=== PATIENT | male | born 1955 | race Caucasian/White ===

== ENCOUNTER 2017-03-01 17:13 | Inpatient (IN) | payer OTHER ==
[~2017-03-01] VITALS: Ht 157.5 cm; Wt 69.9 kg
[2017-03-01 20:40] VITALS: Ht 157.5 cm; Wt 69.9 kg
[2017-03-01 20:48] VITALS: BP 119/80; PULSE 70; RESP 18
[2017-03-01] MEDS ORDERED: ONDANSETRON 4 MG INJ IV PRN (22:00)
[2017-03-01] MEDS ORDERED: DOCUSATE SODIUM 100 MG CAP PO PRN (22:00)
[2017-03-01] MEDS ORDERED: NACL 0.9% 3 ML SYG IV SCH (22:00)
[2017-03-01] MEDS ORDERED: ACETAMINOPHEN 325 MG TAB PO PRN (22:00)
[2017-03-01 23:00] LABS: CREATINE KINASE 38 IU/L (23-200)
[2017-03-01 23:13] LABS: CK-MB 0.92 ng/ml (0.0-2.4); TROPONIN-I < 0.012 ng/ml (0.00-0.12)
[2017-03-02] VITALS (12 sets, daily range): BP systolic 106–128; BP diastolic 69–83; PULSE 58–68; RESP 18–20
[2017-03-02 04:28] LABS: CREATINE KINASE 37 IU/L (23-200)
[2017-03-02 04:44] LABS: CK-MB 0.94 ng/ml (0.0-2.4); TROPONIN-I < 0.012 ng/ml (0.00-0.12)
[2017-03-02] MEDS: METOPROLOL 25 MG TAB PO SCH (08:32)
[2017-03-02] MEDS: ASPIRIN 81 MG TAB PO SCH (08:32)
[2017-03-02] MEDS: FAMOTIDINE 20 MG TAB PO SCH ×2 (08:32→21:13)
--- NOTE | 2017-03-02 13:51 | RADRPT ---
Echocardiogram Report Patient Name: STACEY CARRENO Gender: Male Date: 1955 Study Date: 02-Mar-2017 Pocket Closer: Felix Cassidy [facility] Location: 5556 Ref. Physician: PAOLA HECK Quality: Adequate Procedures: Transthoracic echocardiogram with complete 2D, M-Mode, and doppler examination. Indications: Angina. 2D/M Mode Doppler Measurement Value Normal Ranges Measurement Value Normal Ranges LVIDd 2D 5.5 3.5 - 5.6 cm AV Peak Jose 0.8 m/sec LVIDs 2D 4.4 2.1 - 4.1 cm AV Peak PG 3.0 mmHg FS 2D 20.5 % LVOT Peak Jose 0.5 m/sec LVPWd 2D 1.2 0.6 - 1.1 cm LVOT Peak PG 1.0 mmHg IVSd 2D 1.1 0.6 - 1.1 cm MV E Peak Jose 0.7 m/sec IVS/LVPW 2D 0.9 MV Decel Time 225 msec AoR Diam 2D 2.8 2.0 - 3.7 cm MR Peak PG 56.0 mmHg LA/Ao 2D 1 0 - 1 MR Peak Jose 3.7 m/sec EDV 2D 167.0 cm3 TR Peak Jose 2.6 m/sec ESV 2D 84.0 cm3 TR Peak PG 27.0 mmHg LA Dimen 2D 3.9 2.3 - 4.0 cm RVSP 35.0 mmHg Findings Left Ventricle: Normal left ventricular cavity size. Normal left ventricular wall thickness. Severe global left ventricular systolic dysfunction. Ejection fraction is visually estimated at 25 %. Abnormal Diastolic Function. Right Ventricle: Normal right ventricular size. Normal right ventricular systolic function. Left Atrium: The left atrium is normal in size. Right Atrium: The right atrium is normal in size. Mitral Valve: Mild mitral leaflet calcification. Mild mitral annular calcification. Mild mitral valve regurgitation. Aortic Valve: Aortic sclerosis without stenosis. Trace aortic valve regurgitation. Tricuspid Valve: Normal appearance of the tricuspid valve. Estimated peak PA systolic pressure 35 mmHg. There is mild tricuspid regurgitation. Pulmonic Valve: Pulmonic valve not well visualized. There is mild to moderate pulmonic regurgitation. Pericardium: Normal pericardium with no significant pericardial effusion. Aorta: Normal aortic root. IVC: Normal size and poor respiratory collapse consistent with elevated right atrial pressure. Conclusions 1.Normal left ventricular cavity size. Normal left ventricular wall thickness. Severe global left ventricular systolic dysfunction. Ejection fraction is visually estimated at 25 %. Abnormal Diastolic Function. 2.Normal right ventricular size. Normal right ventricular systolic function. 3.Mild mitral leaflet calcification. Mild mitral annular calcification. Mild mitral valve regurgitation. 4.Aortic sclerosis without stenosis. Trace aortic valve regurgitation. 5.Normal appearance of the tricuspid valve. Estimated peak PA systolic pressure 35 mmHg. There is mild tricuspid regurgitation. 6.Normal pericardium with no significant pericardial effusion. Electronically Signed By: Santhosh Mejia 02-Mar-2017 13:50:47 -0700 Patient Name: STACEY CARRENO Study Date: 02-Mar-2017 [id number]
--- NOTE | 2017-03-02 14:55 | HP ---
Date/Time of Note Date/Time of Note DATE: 03/02/17 TIME: 14:46 Assessment/Plan VTE Prophylaxis VTE Prophylaxis Intervention: ambulation, LMWH Lines/Catheters IV Catheter Type (from Nrs): Saline Lock Assessment/Plan Chief Complaint/Hosp Course 1. CHest pain 2. Hypertension, controlled 3. Bradycardia 4. CAD 5. CHF 6. Dyslipidemia 7.Overweight 8. Hx of MO and cardiac surgery with sternotomy Problems: Assessment/Plan 1. Telemetry monitoring 2. DVT prophylaxis start lovenox 3. Dr Alexandra for cardio consult 4. GI prophylaxis HPI/ROS Admit Date/Time Admit Date/Time Mar 01, 2017 at 20:40 Hx of Present Illness In the first days of Febeme, pt felt weak, started to have SOB, started to have cough at the night time with no or white sputum. He reported palpitations last week as well. 03/01/17 Pt went to [facility] with SOB, chest pain and swollen legs. Positive for Cardiac surgery, coronary artery disease, and dyslipidemia, ROS Eyes: no complaints ENT: no complaints Respiratory: cough, no complaints, other, pain, pleuritic pain, shortness of breath, sputum (white), wheezing Cardiovascular: chest pain, edema, lightheadedness, orthopenea, palpitations, paroxysmal nocturnal dyspnea, No no complaints, No other Gastrointestinal: blood, constipation, pain, No decreased appetite, No diarrhea, No flatus, No nausea, No no complaints, No other, No passing stool, No vomiting Genitourinary: discharge, dysuria, no complaints, No bleeding, No flank pain, No hematuria, No other Musculoskeletal: back pain, bone/joint pain, neck pain, no complaints, other, restricted range of motion, swelling (loer extremities decreased yesterday in the end of the day) Skin: erythema, no complaints, No bruising, No laceration, No other, No pruritis, No rash, No skin lesions Neurologic: no complaints Endocrine: no complaints Lymphatic: no complaints Psychological: anxiety, no complaints, suicidal, No confusion, No depression, No nl mood/affect, No other PMH/Family/Social Past Medical History [place] speaking Medical History: congestive heart failure, coronary artery disease, high cholesterol, hypertension Past Surgical History Past Surgical Hx: angioplasty, other (heart surgery with sternotomy 2015) Family History Significant Family History: no pertinent family hx Social History Alcohol Use: none Smoking Status: Never smoker Drug Use: none Exam/Review of Systems Vital Signs Vitals Vital Signs Date Time Temp Pulse Resp B/P Pulse Ox O2 Delivery O2 Flow Rate FiO2 03/02/17 12:16 63 03/02/17 12:11 98.0 20 106/76 98 Intake and Output 03/01/17 03/01/17 03/02/17 15:00 23:00 07:00 Intake Total 500 ml Balance 500 ml Exam Constitutional: alert, oriented Head: normocephalic ENMT: nl external ears & nose, nl lips & teeth Neck: supple Respiratory: clear to auscultation Cardiovascular: other (bradycardia), regular rate and rhythm Gastrointestinal: soft Extremities: other (left hand with partially lost phalanxes) 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 Medications Medications Current Medications Ondansetron HCl (Zofran Inj) 4 mg Q6H PRN IV NAUSEA AND/OR VOMITING; Start 03/01 at 22:00 Aspirin (Aspirin) 81 mg DAILY PO Last administered on 03/02/17 08:32; Admin Dose 81 MG; Start 03/02/17 at 09:00 Acetaminophen (Tylenol Tab) 650 mg Q6H PRN PO PAIN LEVEL 1-3 OR FEVER Last administered on 03/02/17 11:59; Admin Dose 650 MG; Start 03/01/17 at 22:00 Docusate Sodium (Colace) 100 mg Q12H PRN PO CONSTIPATION; Start 03/01/17 at 22: 00 Famotidine (Pepcid) 20 mg Q12 PO Last administered on 03/02/17 08:32; Admin Dose 20 MG; Start 03/02/17 at 09:00 Metoprolol Tartrate (Lopressor) 12.5 mg DAILY PO Last administered on 03/02/17 08:32; Admin Dose 12.5 MG; Start 03/02/17 at 09:00 DEVANG FENG Mar 02, 2017 14:55
[2017-03-02] MEDS: ENOXAPARIN 40 MG/0.4 ML SYG SC SCH (15:10)
--- NOTE | 2017-03-02 16:02 | CONS ---
Date/Time of Note Date/Time of Note DATE: 03/02/17 TIME: 15:55 Assessment/Plan Assessment/Plan Additional Assessment/Plan Atypical chest pain Ischemic cardiomyopathy with EF 25% Hypertension Abnormal electrocardiogram CAD, s/p NC , s/p CABG CHF Dyslipidemia Chest pain resolved Started on losartan and Aldactone Continue Metoprolol Restrict fluids 1500cc/ 24 hours Continue ASA Continue GI and DVT Prophylaxis Consultation Date/Type/Reason Admit Date/Time Mar 01, 2017 at 20:40 Eyes: no complaints ENT: no complaints Respiratory: cough, no complaints, other, pain, pleuritic pain, shortness of breath, sputum (white), wheezing Cardiovascular: chest pain, edema, lightheadedness, orthopenea, palpitations, paroxysmal nocturnal dyspnea, No no complaints, No other Gastrointestinal: blood, constipation, pain, No decreased appetite, No diarrhea, No flatus, No nausea, No no complaints, No other, No passing stool, No vomiting Genitourinary: discharge, dysuria, no complaints, No bleeding, No flank pain, No hematuria, No other Musculoskeletal: back pain, bone/joint pain, neck pain, no complaints, other, restricted range of motion, swelling (loer extremities decreased yesterday in the end of the day) Skin: erythema, no complaints, No bruising, No laceration, No other, No pruritis, No rash, No skin lesions Neurologic: no complaints Lymphatic: no complaints Psychological: anxiety, no complaints, suicidal, No confusion, No depression, No nl mood/affect, No other Past Medical History Medical History: congestive heart failure, coronary artery disease, high cholesterol, hypertension Past Surgical History Past Surgical Hx: angioplasty, other (heart surgery with sternotomy 2015) Social History Alcohol Use: none Smoking Status: Never smoker Drug Use: none Exam/Review of Systems Vital Signs Vitals Vital Signs Date Time Temp Pulse Resp B/P Pulse Ox O2 Delivery O2 Flow Rate FiO2 03/02/17 12:16 63 03/02/17 12:11 98.0 20 106/76 98 Intake and Output 03/01/17 03/01/17 03/02/17 15:00 23:00 07:00 Intake Total 500 ml Balance 500 ml Exam Constitutional: alert, oriented Head: atraumatic, normocephalic Neck: non-tender, supple Respiratory: clear to auscultation Cardiovascular: regular rate and rhythm Gastrointestinal: nl liver, spleen, non-tender, soft Extremities: normal pulses Results Results 24 hrs Laboratory Tests Test 03/01/17 22:34 03/02/17 03:18 Creatine Kinase 38 37 Creatine Kinase Index 2.4 2.5 Creatinine Kinase MB (Mass) 0.92 0.94 Troponin I < 0.012 < 0.012 Medications Medications Current Medications Ondansetron HCl (Zofran Inj) 4 mg Q6H PRN IV NAUSEA AND/OR VOMITING; Start 03/01 at 22:00 Aspirin (Aspirin) 81 mg DAILY PO Last administered on 03/02/17 08:32; Admin Dose 81 MG; Start 03/02/17 at 09:00 Acetaminophen (Tylenol Tab) 650 mg Q6H PRN PO PAIN LEVEL 1-3 OR FEVER Last administered on 03/02/17 11:59; Admin Dose 650 MG; Start 03/01/17 at 22:00 Docusate Sodium (Colace) 100 mg Q12H PRN PO CONSTIPATION; Start 03/01/17 at 22: 00 Famotidine (Pepcid) 20 mg Q12 PO Last administered on 03/02/17 08:32; Admin Dose 20 MG; Start 03/02/17 at 09:00 Metoprolol Tartrate (Lopressor) 12.5 mg DAILY PO Last administered on 03/02/17 08:32; Admin Dose 12.5 MG; Start 03/02/17 at 09:00 Enoxaparin Sodium (Lovenox) 40 mg DAILY SC Last administered on 03/02/17 15:10 ; Admin Dose 40 MG; Start 03/02/17 at 15:00 Pantoprazole (Protonix Tab) 40 mg DAILY@06 PO ; Start 03/03/17 at 06:00 NILA HANEY M.D. Mar 02, 2017 16:02
[2017-03-02 16:53] LABS: ALBUMIN 2.9 g/dl (3.3-4.9); ALBUMIN/GLOBULIN RATIO 1.03; CALCIUM 8.8 mg/dl (8.4-10.2); CREATININE 0.97 mg/dl (0.61-1.24); POTASSIUM 4.9 mmol/L (3.5-5.1); TOTAL PROTEIN 5.7 g/dl (6.1-8.1)
[2017-03-02] MEDS: SPIRONOLACTONE 25 MG TAB PO SCH (17:55)
[2017-03-02] MEDS: LOSARTAN 25 MG TAB PO SCH (17:55)
[2017-03-03] VITALS (11 sets, daily range): BP systolic 99–110; BP diastolic 57–71; PULSE 56–66; RESP 17–20
[2017-03-03] MEDS: PANTOPRAZOLE (EC) 40 MG TAB PO SCH (06:26)
[2017-03-03 07:57] LABS: BASOPHIL # 0.1 10^3/ul (0.0-0.1); BASOPHILS % 0.9 % (0.0-2.0); EOSINOPHILS # 0.1 10^3/ul (0.0-0.5); EOSINOPHILS % 1.7 % (0.0-7.0); HEMATOCRIT 47.1 % (42.0-52.0); LYMPHOCYTES # 2.2 10^3/ul (0.8-2.9); LYMPHOCYTES % 37.8 % (15.0-51.0); MEAN CORPUSCULAR HEMOGLOBIN 30.4 pg (29.0-33.0); MEAN CORPUSCULAR HGB CONC 31.8 g/dl (32.0-37.0); MEAN CORPUSCULAR VOLUME 95.5 fl (82.0-101.0); MEAN PLATELET VOLUME 11.3 fl (7.4-10.4); MONOCYTE # 0.5 10^3/ul (0.3-0.9); MONOCYTES % 9.3 % (0.0-11.0); PLATELET COUNT 124 10^3/UL (140-415); POSITIVE DIFF @See below; RED BLOOD COUNT 4.93 10^6/ul (4.70-6.10); RED CELL DISTRIBUTION WIDTH 15.1 % (11.5-14.5); WHITE BLOOD COUNT 5.8 10^3/ul (4.8-10.8)
[2017-03-03 08:17] LABS: ALBUMIN 2.6 g/dl (3.3-4.9); ALBUMIN/GLOBULIN RATIO 0.96; BILIRUBIN,INDIRECT 1.3 mg/dl (0-1.1); BILIRUBIN,TOTAL 1.3 mg/dl (0.2-1.3); CALCIUM 8.6 mg/dl (8.4-10.2); CREATININE 0.9 mg/dl (0.61-1.24); POTASSIUM 4.8 mmol/L (3.5-5.1); TOTAL PROTEIN 5.3 g/dl (6.1-8.1)
[2017-03-03] MEDS: LOSARTAN 25 MG TAB PO SCH (09:00)
[2017-03-03] MEDS: FAMOTIDINE 20 MG TAB PO SCH ×2 (10:09→21:13)
[2017-03-03] MEDS: SPIRONOLACTONE 25 MG TAB PO SCH (10:09)
[2017-03-03] MEDS: ASPIRIN 81 MG TAB PO SCH (10:09)
[2017-03-03] MEDS: ENOXAPARIN 40 MG/0.4 ML SYG SC SCH (10:10)
[2017-03-03] MEDS: METOPROLOL 25 MG TAB PO SCH (10:13)
--- NOTE | 2017-03-03 13:22 | CONS ---
Date/Time of Note Date/Time of Note DATE: 03/03/17 TIME: 13:20 Assessment/Plan Assessment/Plan Additional Assessment/Plan Atypical chest pain Ischemic cardiomyopathy with EF 25% Hypertension Abnormal electrocardiogram CAD, s/p ME , s/p CABG CHF Dyslipidemia Chest pain resolved hemodynamically stable, denies dizziness Continue losartan and Aldactone Continue Metoprolol Restrict fluids 1500cc/ 24 hours Continue ASA Continue GI and DVT Prophylaxis ok for discharge Consultation Date/Type/Reason Admit Date/Time Mar 01, 2017 at 20:40 Initial Consult Date Exam/Review of Systems Vital Signs Vitals Vital Signs Date Time Temp Pulse Resp B/P Pulse Ox O2 Delivery O2 Flow Rate FiO2 03/03/17 12:35 98.0 63 18 99/60 98 Intake and Output 03/02/17 03/02/17 03/03/17 15:00 23:00 07:00 Intake Total 560 ml 60 ml Output Total 850 ml Balance 560 ml -790 ml Exam Constitutional: alert, oriented, well developed Head: atraumatic, normocephalic Neck: non-tender, supple Respiratory: clear to auscultation Cardiovascular: regular rate and rhythm Gastrointestinal: nl liver, spleen, non-tender, soft Extremities: normal pulses Results Result Diagram: 03/03/17 0722 03/03/17 0729 Results 24 hrs Laboratory Tests Test 03/02/17 16:27 03/03/17 07:22 03/03/17 07:29 Sodium Level 138 139 Potassium Level 4.9 4.8 Chloride Level 107 108 Carbon Dioxide Level 29 30 Anion Gap 7 L 6 L Blood Urea Nitrogen 18 15 Creatinine 0.97 0.90 Glucose Level 88 72 Calcium Level 8.8 8.6 Total Bilirubin 1.0 1.3 Direct Bilirubin 0.00 0.00 Indirect Bilirubin 1.0 1.3 H Aspartate Amino Transf (AST/SGOT) 49 H 39 Alanine Aminotransferase (ALT/SGPT) 79 H 71 H Alkaline Phosphatase 139 H 130 H Total Protein 5.7 L 5.3 L Albumin 2.9 L 2.6 L Globulin 2.80 2.70 Albumin/Globulin Ratio 1.03 0.96 White Blood Count 5.8 Red Blood Count 4.93 Hemoglobin 15.0 Hematocrit 47.1 Mean Corpuscular Volume 95.5 Mean Corpuscular Hemoglobin 30.4 Mean Corpuscular Hemoglobin Concent 31.8 L Red Cell Distribution Width 15.1 H Platelet Count 124 L Mean Platelet Volume 11.3 H Neutrophils % 50.0 Lymphocytes % 37.8 Monocytes % 9.3 Eosinophils % 1.7 Basophils % 0.9 Nucleated Red Blood Cells % 0.0 Neutrophils # (Manual) 2.9 Lymphocytes # 2.2 Monocytes # 0.5 Eosinophils # 0.1 Basophils # 0.1 Nucleated Red Blood Cells # 0.0 Medications Medications Current Medications Ondansetron HCl (Zofran Inj) 4 mg Q6H PRN IV NAUSEA AND/OR VOMITING; Start 03/01 at 22:00 Aspirin (Aspirin) 81 mg DAILY PO Last administered on 03/03/17 10:09; Admin Dose 81 MG; Start 03/02/17 at 09:00 Acetaminophen (Tylenol Tab) 650 mg Q6H PRN PO PAIN LEVEL 1-3 OR FEVER Last administered on 03/02/17 11:59; Admin Dose 650 MG; Start 03/01/17 at 22:00 Docusate Sodium (Colace) 100 mg Q12H PRN PO CONSTIPATION; Start 03/01/17 at 22: 00 Famotidine (Pepcid) 20 mg Q12 PO Last administered on 03/03/17 10:09; Admin Dose 20 MG; Start 03/02/17 at 09:00 Metoprolol Tartrate (Lopressor) 12.5 mg DAILY PO Last administered on 03/02/17 08:32; Admin Dose 12.5 MG; Start 03/02/17 at 09:00 Enoxaparin Sodium (Lovenox) 40 mg DAILY SC Last administered on 03/03/17 10:10 ; Admin Dose 40 MG; Start 03/02/17 at 15:00 Pantoprazole (Protonix Tab) 40 mg DAILY@06 PO Last administered on 03/03/17 06 :26; Admin Dose 40 MG; Start 03/03/17 at 06:00 Losartan Potassium (Cozaar) 25 mg DAILY PO Last administered on 03/02/17 17:55 ; Admin Dose 25 MG; Start 03/02/17 at 17:00 Spironolactone (Aldactone) 25 mg DAILY PO Last administered on 03/03/17 10:09 ; Admin Dose 25 MG; Start 03/02/17 at 16:00 NILA HANEY M.D. Mar 03, 2017 13:22
--- NOTE | 2017-03-03 18:08 | PN ---
Date/Time of Note Date/Time of Note DATE: 03/03/17 TIME: 17:52 Assessment/Plan VTE Prophylaxis VTE Prophylaxis Intervention: LMWH Lines/Catheters IV Catheter Type (from Nrs): Saline Lock Assessment/Plan Chief Complaint/Hosp Course 1. Chest pain , troponins negative 2. Hypertension, currently hypotensive ,started on Losartan and Aldactone 3. Bradycardia 4. HX CAD 5. CHF with EF 20-25% with systolic abd 6. Dyslipidemia 7.Overweight 8. Hx of PR and cardiac surgery with sternotomy Problems: Assessment/Plan 1. Hold Losartan, MTP was also held due to hypotension [address] Alexandra to follow 3 c/w ASA Problems: Subjective 24 Hr Interval Summary Free Text/Dictation Pt feeling little dizzy, Losartan and MTP were held, SBP in 90'S Exam/Review of Systems Vital Signs Vitals Vital Signs Date Time Temp Pulse Resp B/P Pulse Ox O2 Delivery O2 Flow Rate FiO2 03/03/17 16:16 98.0 62 18 99/57 98 Intake and Output 03/02/17 03/02/17 03/03/17 15:00 23:00 07:00 Intake Total 560 ml 60 ml Output Total 850 ml Balance 560 ml -790 ml Exam constitutional: alert, oriented Head: normocephalic ENMT: nl external ears & nose, nl lips & teeth Neck: supple Respiratory: decreased breath sounds at bases Cardiovascular: other (bradycardia), regular rate and rhythm Gastrointestinal: soft Extremities: other (left hand with partially lost phalanxes) Results Result Diagram: 03/03/17 0722 03/03/17 0729 Results 24 hrs Laboratory Tests Test 03/03/17 07:22 03/03/17 07:29 White Blood Count 5.8 Red Blood Count 4.93 Hemoglobin 15.0 Hematocrit 47.1 Mean Corpuscular Volume 95.5 Mean Corpuscular Hemoglobin 30.4 Mean Corpuscular Hemoglobin Concent 31.8 L Red Cell Distribution Width 15.1 H Platelet Count 124 L Mean Platelet Volume 11.3 H Neutrophils % 50.0 Lymphocytes % 37.8 Monocytes % 9.3 Eosinophils % 1.7 Basophils % 0.9 Nucleated Red Blood Cells % 0.0 Neutrophils # (Manual) 2.9 Lymphocytes # 2.2 Monocytes # 0.5 Eosinophils # 0.1 Basophils # 0.1 Nucleated Red Blood Cells # 0.0 Sodium Level 139 Potassium Level 4.8 Chloride Level 108 Carbon Dioxide Level 30 Anion Gap 6 L Blood Urea Nitrogen 15 Creatinine 0.90 Glucose Level 72 Calcium Level 8.6 Total Bilirubin 1.3 Direct Bilirubin 0.00 Indirect Bilirubin 1.3 H Aspartate Amino Transf (AST/SGOT) 39 Alanine Aminotransferase (ALT/SGPT) 71 H Alkaline Phosphatase 130 H Total Protein 5.3 L Albumin 2.6 L Globulin 2.70 Albumin/Globulin Ratio 0.96 Medications Medications Current Medications Ondansetron HCl (Zofran Inj) 4 mg Q6H PRN IV NAUSEA AND/OR VOMITING; Start 03/01 at 22:00 Aspirin (Aspirin) 81 mg DAILY PO Last administered on 03/03/17 10:09; Admin Dose 81 MG; Start 03/02/17 at 09:00 Acetaminophen (Tylenol Tab) 650 mg Q6H PRN PO PAIN LEVEL 1-3 OR FEVER Last administered on 03/02/17 11:59; Admin Dose 650 MG; Start 03/01/17 at 22:00 Docusate Sodium (Colace) 100 mg Q12H PRN PO CONSTIPATION; Start 03/01/17 at 22: 00 Famotidine (Pepcid) 20 mg Q12 PO Last administered on 03/03/17 10:09; Admin Dose 20 MG; Start 03/02/17 at 09:00 Metoprolol Tartrate (Lopressor) 12.5 mg DAILY PO Last administered on 03/02/17 08:32; Admin Dose 12.5 MG; Start 03/02/17 at 09:00 Enoxaparin Sodium (Lovenox) 40 mg DAILY SC Last administered on 03/03/17 10:10 ; Admin Dose 40 MG; Start 03/02/17 at 15:00 Pantoprazole (Protonix Tab) 40 mg DAILY@06 PO Last administered on 03/03/17 06 :26; Admin Dose 40 MG; Start 03/03/17 at 06:00 Spironolactone (Aldactone) 25 mg DAILY PO Last administered on 03/03/17 10:09 ; Admin Dose 25 MG; Start 03/02/17 at 16:00 PAOLA HECK MD Mar 03, 2017 18:08
[2017-03-04] VITALS (12 sets, daily range): BP systolic 100–130; BP diastolic 57–81; PULSE 60–73; RESP 17–20
[2017-03-04] MEDS: PANTOPRAZOLE (EC) 40 MG TAB PO SCH (05:57)
[2017-03-04] MEDS: FAMOTIDINE 20 MG TAB PO SCH ×2 (08:42→20:27)
[2017-03-04] MEDS: SPIRONOLACTONE 25 MG TAB PO SCH (08:42)
[2017-03-04] MEDS: ASPIRIN 81 MG TAB PO SCH (08:42)
[2017-03-04] MEDS: METOPROLOL 25 MG TAB PO SCH (08:44)
[2017-03-04] MEDS: ENOXAPARIN 40 MG/0.4 ML SYG SC SCH (08:50)
--- NOTE | 2017-03-04 13:13 | CONS ---
Date/Time of Note Date/Time of Note DATE: 03/04/17 TIME: 13:09 Assessment/Plan Assessment/Plan Chief Complaint/Hosp Course IMP: 1.Chest pain-resolved negative trops 2.cardiomyopathy-EF 25% by echo this admit 3.HTN 4.cough-?URI 5. CAd s/p cabg 2016? 6.Bradycardia-borderline Recc: -Tele -Continue low dose BB and resume low dose ARB as tolerated for treatment of cardiomyopathy -start low dose lasix standing -complete esperanza with final trop -am fasting lipid panel and start lipid lowering medicatioins as necessary -continue aldactone -AM lexiscan Problems: Consultation Date/Type/Reason Admit Date/Time Mar 01, 2017 at 20:40 Initial Consult Date 03/02/2017 Type of Consultation: cardiology Reason for Consultation chest pain Referring Provider: ZOE LUNDY MD Exam/Review of Systems Vital Signs Vitals Vital Signs Date Time Temp Pulse Resp B/P Pulse Ox O2 Delivery O2 Flow Rate FiO2 03/04/17 12:17 73 03/04/17 12:11 98.0 20 105/57 100 Intake and Output 03/03/17 03/03/17 03/04/17 15:00 23:00 07:00 Intake Total 420 ml Output Total 1100 ml Balance -680 ml Exam Review of Systems: CONSTITUTIONAL: No fevers, chills. PULMONARY: No sob CARDIOVASCULAR: No chest pain/palpitations GASTROINTESTINAL: No nausea/vomiting. GENITOURINARY: No hematuria/dysuria. MUSCULOSKELETAL: No myagias/arthalgias. PSYCHIATRIC: The patient denies depression. NEUROLOGIC: No weakness Constitutional: alert, oriented Head: normocephalic ENMT: mucosa pink and moist Neck: jvd (9 cm water), supple Respiratory: diminished breath sounds (at bases/B) Cardiovascular: regular rate and rhythm Gastrointestinal: non-tender, soft Musculoskeletal: muscle weakness (generalized) Extremities: edema (none) Neurological: other (No focakl deficits) Results Result Diagram: 03/03/17 0722 03/03/17 0729 Medications Medications Current Medications Ondansetron HCl (Zofran Inj) 4 mg Q6H PRN IV NAUSEA AND/OR VOMITING; Start 03/01 at 22:00 Aspirin (Aspirin) 81 mg DAILY PO Last administered on 03/04/17t 08:42; Admin Dose 81 MG; Start 03/02/17 at 09:00 Acetaminophen (Tylenol Tab) 650 mg Q6H PRN PO PAIN LEVEL 1-3 OR FEVER Last administered on 03/02/17 11:59; Admin Dose 650 MG; Start 03/01/17 at 22:00 Docusate Sodium (Colace) 100 mg Q12H PRN PO CONSTIPATION; Start 03/01/17 at 22: 00 Famotidine (Pepcid) 20 mg Q12 PO Last administered on 03/04/17 08:42; Admin Dose 20 MG; Start 03/02/17 at 09:00 Metoprolol Tartrate (Lopressor) 12.5 mg DAILY PO Last administered on 03/02/17 08:32; Admin Dose 12.5 MG; Start 03/02/17 at 09:00 Enoxaparin Sodium (Lovenox) 40 mg DAILY SC Last administered on 03/04/17 08:50 ; Admin Dose 40 MG; Start 03/02/17 at 15:00 Pantoprazole (Protonix Tab) 40 mg DAILY@06 PO Last administered on 03/04/17 05 :57; Admin Dose 40 MG; Start 03/03/17 at 06:00 Spironolactone (Aldactone) 25 mg DAILY PO Last administered on 03/04/17 08:42 ; Admin Dose 25 MG; Start 03/02/17 at 16:00 ANOOP RUIZ Mar 04, 2017 13:13
--- NOTE | 2017-03-04 18:51 | PN ---
Date/Time of Note Date/Time of Note DATE: 03/04/17 TIME: 18:50 Assessment/Plan VTE Prophylaxis VTE Prophylaxis Intervention: other Lines/Catheters IV Catheter Type (from Nrsg): Saline Lock Assessment/Plan Chief Complaint/Hosp Course 1. Chest pain , troponins negative 2. Hypertension, currently hypotensive ,started on Losartan and Aldactone 3. Bradycardia 4. HX CAD 5. CHF with EF 20-25% with systolic abd 6. Dyslipidemia 7.Overweight 8. Hx of AL and cardiac surgery with sternotomy 9 HIGH LFT PLAN CMP US LIVER Problems: Subjective 24 Hr Interval Summary Subjective hx not possible: other (HIGH LFT) Exam/Review of Systems Vital Signs Vitals Vital Signs Date Time Temp Pulse Resp B/P Pulse Ox O2 Delivery O2 Flow Rate FiO2 03/04/17 16:16 62 03/04/17 16:12 98.3 20 130/81 100 Intake and Output 03/03/17 03/03/17 03/04/17 15:00 23:00 07:00 Intake Total 420 ml Output Total 1100 ml Balance -680 ml Exam Neck: supple Respiratory: clear to auscultation Cardiovascular: regular rate and rhythm Gastrointestinal: soft Musculoskeletal: nl extremities to inspection Extremities: normal pulses Results Result Diagram: 03/03/1772103/03/17 0729 Medications Medications Current Medications Ondansetron HCl (Zofran Inj) 4 mg Q6H PRN IV NAUSEA AND/OR VOMITING; Start 03/01 at 22:00 Aspirin (Aspirin) 81 mg DAILY PO Last administered on 03/04/17 08:42; Admin Dose 81 MG; Start 03/02/17 at 09:00 Acetaminophen (Tylenol Tab) 650 mg Q6H PRN PO PAIN LEVEL 1-3 OR FEVER Last administered on 03/02/17 11:59; Admin Dose 650 MG; Start 03/01/17 at 22:00 Docusate Sodium (Colace) 100 mg Q12H PRN PO CONSTIPATION; Start 03/01/17 at 22: 00 Famotidine (Pepcid) 20 mg Q12 PO Last administered on 03/04/17 08:42; Admin Dose 20 MG; Start 03/02/17 at 09:00 Enoxaparin Sodium (Lovenox) 40 mg DAILY SC Last administered on 03/04/17 08:50 ; Admin Dose 40 MG; Start 03/02/17 at 15:00 Pantoprazole (Protonix Tab) 40 mg DAILY@06 PO Last administered on 03/04/17 05 :57; Admin Dose 40 MG; Start 03/03/17 at 06:00 Spironolactone (Aldactone) 25 mg DAILY PO Last administered on 03/04/17 08:42 ; Admin Dose 25 MG; Start 03/02/17 at 16:00 Carvedilol (Coreg) 3.125 mg BID PO ; Start 03/04/17 at 21:00 Losartan Potassium (Cozaar) 12.5 mg DAILY PO ; Start 03/05/17 at 09:00 Furosemide (Lasix) 20 mg DAILY PO ; Start 03/05/17 at 09:00 ZOE LUNDY MD Mar 04, 2017 18:50
[2017-03-05] VITALS (10 sets, daily range): BP systolic 92–137; BP diastolic 61–74; PULSE 58–69; RESP 17–18
[2017-03-05] MEDS: PANTOPRAZOLE (EC) 40 MG TAB PO SCH (05:10)
[2017-03-05 08:07] LABS: ALBUMIN 2.9 g/dl (3.3-4.9); ALBUMIN/GLOBULIN RATIO 0.96; BILIRUBIN,INDIRECT 0.8 mg/dl (0-1.1); BILIRUBIN,TOTAL 0.8 mg/dl (0.2-1.3); CALCIUM 8.8 mg/dl (8.4-10.2); CREATININE 0.94 mg/dl (0.61-1.24); POTASSIUM 4.5 mmol/L (3.5-5.1); TOTAL PROTEIN 5.9 g/dl (6.1-8.1)
[2017-03-05] MEDS: SPIRONOLACTONE 25 MG TAB PO SCH (09:04)
[2017-03-05] MEDS: FAMOTIDINE 20 MG TAB PO SCH ×2 (09:04→21:19)
[2017-03-05] MEDS: LOSARTAN 25 MG TAB PO SCH (09:05)
[2017-03-05] MEDS: FUROSEMIDE 20 MG TAB PO SCH (09:06)
[2017-03-05] MEDS: ASPIRIN 81 MG TAB PO SCH (09:07)
--- NOTE | 2017-03-05 09:07 | CONS ---
Date/Time of Note Date/Time of Note DATE: 03/05/17 TIME: 09:03 Assessment/Plan Assessment/Plan Additional Assessment/Plan 1.Chest pain-resolved negative trops - plan for stress test today 2.cardiomyopathy-EF 25% by echo this admit - will validate with Stress Test now 3.HTN - modest Rx, adjust therapy as needed 4 Cough-?URI - on therapy now. 5. CAd s/p cabg 2015? - stress test to folow 6.Bradycardia-borderline - HR 50-60, no indication for pacer now Consultation Date/Type/Reason Admit Date/Time Mar 01, 2017 at 20:40 Initial Consult Date Type of Consultation: cardiology Referring Provider: ZOE LUNDY MD 24 HR Interval Summary Free Text/Dictation NO acute events - plan for stress test today ROS: No fever, no chills, no nausea, no vomiting, no diarrhea/constipation No recent weight changes No chest pain, no PND, no orthopnea No dizziness, blurred vision No thirst, no heat or cold intolerance Exam/Review of Systems Vital Signs Vitals Vital Signs Date Time Temp Pulse Resp B/P Pulse Ox O2 Delivery O2 Flow Rate FiO2 03/05/17 08:53 61 03/05/17 07:49 99.2 18 112/74 99 Intake and Output 03/04/17 03/04/17 03/05/17 15:00 23:00 07:00 Intake Total 800 ml 600 ml Output Total 1000 ml 650 ml Balance -200 ml -50 ml Exam General: WN/WD/NAD, AOx 3 HEENT: Unicetric/atraumatic/EOMI ( follows commands) NECK: JVD elevated, no thyromegaly Lymph: no lymphadenopathy HEART: regular with no S3, II/ systolic murmur at apex LUNGS: Coarse sounds ABD: soft, NT, ND, +BS : Intact Neuro: non focal SKIN: chronic changes EXT: trace edema Results Result Diagram: 03/03/17 0722 03/05/17 0650 Results 24 hrs Laboratory Tests Test 03/05/17 06:50 Sodium Level 138 Potassium Level 4.5 Chloride Level 105 Carbon Dioxide Level 29 Anion Gap 9 Blood Urea Nitrogen 18 Creatinine 0.94 Glucose Level 81 Calcium Level 8.8 Total Bilirubin 0.8 Direct Bilirubin 0.00 Indirect Bilirubin 0.8 Aspartate Amino Transf (AST/SGOT) 38 Alanine Aminotransferase (ALT/SGPT) 63 Alkaline Phosphatase 124 H Total Protein 5.9 L Albumin 2.9 L Globulin 3.00 Albumin/Globulin Ratio 0.96 Medications Medications Current Medications Ondansetron HCl (Zofran Inj) 4 mg Q6H PRN IV NAUSEA AND/OR VOMITING; Start 03/01 at 22:00 Aspirin (Aspirin) 81 mg DAILY PO Last administered on 03/04/17 08:42; Admin Dose 81 MG; Start 03/02/17 at 09:00 Acetaminophen (Tylenol Tab) 650 mg Q6H PRN PO PAIN LEVEL 1-3 OR FEVER Last administered on 03/02/17 11:59; Admin Dose 650 MG; Start 03/01/17 at 22:00 Docusate Sodium (Colace) 100 mg Q12H PRN PO CONSTIPATION; Start 03/01/17 at 22: 00 Famotidine (Pepcid) 20 mg Q12 PO Last administered on 03/04/17 20:27; Admin Dose 20 MG; Start 03/02/17 at 09:00 Enoxaparin Sodium (Lovenox) 40 mg DAILY SC Last administered on 03/04/17 08:50 ; Admin Dose 40 MG; Start 03/02/17 at 15:00 Pantoprazole (Protonix Tab) 40 mg DAILY@06 PO Last administered on 03/05/17 05 :10; Admin Dose 40 MG; Start 03/03/17 at 06:00 Spironolactone (Aldactone) 25 mg DAILY PO Last administered on 03/04/17 08:42 ; Admin Dose 25 MG; Start 03/02/17 at 16:00 Carvedilol (Coreg) 3.125 mg BID PO Last administered on 03/04/17 20:28; Admin Dose 3.125 MG; Start 03/04/17 at 21:00 Losartan Potassium (Cozaar) 12.5 mg DAILY PO ; Start 03/05/17 at 09:00 Furosemide (Lasix) 20 mg DAILY PO ; Start 03/05/17 at 09:00 MARK DA SILVA MD Mar 05, 2017 09:07
[2017-03-05] MEDS: ENOXAPARIN 40 MG/0.4 ML SYG SC SCH (09:09)
[2017-03-05] MEDS ORDERED: REGADENOSON 0.4 MG/5 ML SYG ONE (09:55)
--- NOTE | 2017-03-05 10:44 | RADRPT ---
PROCEDURE: US Abdomen (right upper quadrant). CLINICAL INDICATION: Abnormal liver function tests. TECHNIQUE: Multiple real-time longitudinal and transverse images of the right upper quadrant of th e abdomen were acquired utilizing a curved array transducer. Images were reviewed on a high-resoluti on PACS workstation. COMPARISON: None FINDINGS: The liver is normal in size and normal in echogenicity. There is no focal hepatic lesion. Color Doppler and pulsed Doppler sonography demonstrate normal a ntegrade flow in the portal vein. The gallbladder is normal with no stones or wall thickening. There is no pericholecystic fluid sameera ection. The bile ducts are normal with the common bile duct measuring 3.8 mm in diameter. The pancreas is not visualized due to overlying bowel gas. There is no ascites. There is a right pleural effusion. The right kidney measures 10.3 cm. There is normal echogenicity of the right kidney. There is no perinephric fluid collection. No hydronephrosis, mass, or calculus is seen. IMPRESSION: 1. Pancreas not visualized. 2. Right pleural effusion. 3. Otherwise normal right upper quadrant abdomen ultrasound. RPTAT: QQ .Raul Chatterjee MD, Date Time Electronically viewed and signed by .Raul Chatterjee MD, on 03/05/2017 10:43 .R/
--- NOTE | 2017-03-05 15:32 | RADRPT ---
PROCEDURE: Lexiscan myocardial perfusion study CLINICAL INDICATION: 61 -year-old patient with coronary artery disease, status post CABG, complain ing of chest pain. TECHNIQUE: Lexiscan 0.4 mg intravenously separate acquisition gated myocardial perfusion SPECT usi ng Tc 99m Myoview 30.0 mCi intravenously at stress and Tc-99m Myoview, 10.0 mCi intravenously at res t was performed using the rest/stress sequence. Poststress Myoview SPECT images were obtained in th e supine position. COMPARISON: No prior studies. FINDINGS: Perfusion images reveal a moderate size moderate in degree predominantly nonreversible perfusion def ect in the apical, distal anteroseptal, distal anterior and inferior santiago. Lexiscan post stress gated SPECT images demonstrate a dyskinetic septal wall, which is likely relate d to prior CABG and moderate hypokinesis of the left ventricle. IMPRESSION: 1. The type and distribution of the scintigraphic abnormalities are most consistent with a moderate size predominantly nonreversible perfusion defect involving the apex, distal anteroseptal, distal a nterior and inferior santiago. 2. Dyskinetic septal wall likely due to prior CABG and moderate hypokinesis of the remainder of the left ventricle. 3. The left ventricle ejection fraction at stress is 36%. A call report was made to Dr. Alexandra at 03:29 p.m. on March 05, 2017. RPTAT: HH .Dina Lee MD, Date Time Electronically viewed and signed by .Dina Lee MD, on 03/05/2017 15:31 .L/
--- NOTE | 2017-03-05 17:37 | PN ---
Date/Time of Note Date/Time of Note DATE: 03/05/17 TIME: 17:36 Assessment/Plan VTE Prophylaxis VTE Prophylaxis Intervention: other Lines/Catheters IV Catheter Type (from Nrsg): Saline Lock Assessment/Plan Chief Complaint/Hosp Course 1. Chest pain , troponins negative 2. Hypertension, currently hypotensive ,started on Losartan and Aldactone 3. Bradycardia 4. HX CAD 5. CHF with EF 20-25% with systolic abd 6. Dyslipidemia 7.Overweight 8. Hx of MD and cardiac surgery with sternotomy 9 HIGH LFT better PLAN CMP US LIVER seen xr chest Problems: Subjective 24 Hr Interval Summary Cardiovascular: orthopenea (+) Gastrointestinal: no complaints Exam/Review of Systems Vital Signs Vitals Vital Signs Date Time Temp Pulse Resp B/P Pulse Ox O2 Delivery O2 Flow Rate FiO2 03/05/17 16:52 65 03/05/17 16:03 98.3 18 97/61 94 Intake and Output 03/04/17 03/04/17 03/05/17 14:59 22:59 06:59 Intake Total 800 ml 600 ml Output Total 1000 ml 650 ml Balance -200 ml -50 ml Exam Neck: supple Respiratory: clear to auscultation Cardiovascular: regular rate and rhythm Gastrointestinal: soft Musculoskeletal: nl extremities to inspection Extremities: normal pulses Results Result Diagram: 03/03/17 0722 03/05/17 0650 Results 24 hrs Laboratory Tests Test 03/05/17 06:50 Sodium Level 138 Potassium Level 4.5 Chloride Level 105 Carbon Dioxide Level 29 Anion Gap 9 Blood Urea Nitrogen 18 Creatinine 0.94 Glucose Level 81 Calcium Level 8.8 Total Bilirubin 0.8 Direct Bilirubin 0.00 Indirect Bilirubin 0.8 Aspartate Amino Transf (AST/SGOT) 38 Alanine Aminotransferase (ALT/SGPT) 63 Alkaline Phosphatase 124 H Total Protein 5.9 L Albumin 2.9 L Globulin 3.00 Albumin/Globulin Ratio 0.96 Medications Medications Current Medications Ondansetron HCl (Zofran Inj) 4 mg Q6H PRN IV NAUSEA AND/OR VOMITING; Start 03/01 at 22:00 Aspirin (Aspirin) 81 mg DAILY PO Last administered on 03/05/17 09:07; Admin Dose 81 MG; Start 03/02/17 at 09:00 Acetaminophen (Tylenol Tab) 650 mg Q6H PRN PO PAIN LEVEL 1-3 OR FEVER Last administered on 03/02/17 11:59; Admin Dose 650 MG; Start 03/01/17 at 22:00 Docusate Sodium (Colace) 100 mg Q12H PRN PO CONSTIPATION; Start 03/01/17 at 22: 00 Famotidine (Pepcid) 20 mg Q12 PO Last administered on 03/05/17 09:04; Admin Dose 20 MG; Start 03/02/17 at 09:00 Enoxaparin Sodium (Lovenox) 40 mg DAILY SC Last administered on 03/05/17 09:09 ; Admin Dose 40 MG; Start 03/02/17 at 15:00 Pantoprazole (Protonix Tab) 40 mg DAILY@06 PO Last administered on 03/05/17 05 :10; Admin Dose 40 MG; Start 03/03/17 at 06:00 Spironolactone (Aldactone) 25 mg DAILY PO Last administered on 03/05/17 09:04 ; Admin Dose 25 MG; Start 03/02/17 at 16:00 Carvedilol (Coreg) 3.125 mg BID PO Last administered on 03/05/17 09:04; Admin Dose 3.125 MG; Start 03/04/17 at 21:00 Losartan Potassium (Cozaar) 12.5 mg DAILY PO Last administered on 03/05/17 09: 05; Admin Dose 12.5 MG; Start 03/05/17 at 09:00 Furosemide (Lasix) 20 mg DAILY PO Last administered on 03/05/17 09:06; Admin Dose 20 MG; Start 03/05/17 at 09:00 ZOE LUNDY MD Mar 05, 2017 17:37
--- NOTE | 2017-03-05 21:10 | RADRPT ---
PROCEDURE: Chest radiograph CLINICAL INDICATION: Shortness of breath. COMPARISON: None available for review.. TECHNIQUE: Single frontal chest radiograph. FINDINGS: The lungs are clear. No pleural effusion or focal parenchymal opacity. Cardiomegaly. Median sternotomy. No suspicious bone lesion. IMPRESSION: Cardiomegaly. RPTAT: [facility] Physician Isabella Date Time Electronically viewed and signed by Lebron Mcfadden Physician on 03/05/2017 21:09 LG/
[2017-03-06] VITALS (11 sets, daily range): BP systolic 91–111; BP diastolic 62–76; PULSE 56–74; RESP 16–18
[2017-03-06] MEDS: PANTOPRAZOLE (EC) 40 MG TAB PO SCH (05:12)
[2017-03-06 07:53] LABS: ALBUMIN 3.1 g/dl (3.3-4.9); ALBUMIN/GLOBULIN RATIO 0.96; BILIRUBIN,INDIRECT 0.9 mg/dl (0-1.1); BILIRUBIN,TOTAL 0.9 mg/dl (0.2-1.3); CALCIUM 9.4 mg/dl (8.4-10.2); CREATININE 1.04 mg/dl (0.61-1.24); TOTAL PROTEIN 6.3 g/dl (6.1-8.1)
[2017-03-06 08:37] LABS: POTASSIUM 5.9 mmol/L (3.5-5.1)
[2017-03-06] MEDS: ASPIRIN 81 MG TAB PO SCH (09:12)
[2017-03-06] MEDS: ENOXAPARIN 40 MG/0.4 ML SYG SC SCH (09:12)
[2017-03-06] MEDS: SPIRONOLACTONE 25 MG TAB PO SCH (09:13)
[2017-03-06] MEDS: FAMOTIDINE 20 MG TAB PO SCH (09:13)
[2017-03-06] MEDS ORDERED: NA POLYST SULFON 15 GM/60 ML BTL PO ONE (12:30)
[2017-03-06 13:57] LABS: CREATININE 0.87 mg/dl (0.61-1.24); POTASSIUM 4.5 mmol/L (3.5-5.1)
[2017-03-06] MEDS: LOSARTAN 25 MG TAB PO SCH (14:21)
[2017-03-06] MEDS: FUROSEMIDE 20 MG TAB PO SCH (14:24)
--- NOTE | 2017-03-06 15:51 | CONS ---
Date/Time of Note Date/Time of Note DATE: 03/06/17 TIME: 15:47 Assessment/Plan Assessment/Plan Chief Complaint/Hosp Course IMP: 1.Chest pain-resolved negative trops 2.cardiomyopathy-EF 25% by echo this admit with stress test revealing ef 36% with scar but no ischemia 3.HTN 4.cough-?URI 5. CAd s/p cabg 2016 6.Bradycardia-borderline Recc: -Tele -Continue low dose BB/ARBfor treatment of cardiomyopathy -Continue low dose lasix PO -Continue aldactone/asa -Check lipid panel and star statin as necessary -If remains asymptomatic then d/c planning with outpatient f/u 2-3 weeks and gave patient my card for f/u information Problems: Consultation Date/Type/Reason Admit Date/Time Mar 01, 2017 at 20:40 Initial Consult Date 03/02/2017 Type of Consultation: cardiology Reason for Consultation chest pain Referring Provider: ZOE LUNDY MD Exam/Review of Systems Vital Signs Vitals Vital Signs Date Time Temp Pulse Resp B/P Pulse Ox O2 Delivery O2 Flow Rate FiO2 03/06/17 14:09 74 111/76 03/06/17 11:39 97.7 18 99 Intake and Output 03/05/17 03/05/17 03/06/17 15:00 23:00 07:00 Intake Total 500 ml 500 ml Output Total 1200 ml 800 ml Balance -700 ml -300 ml Exam Review of Systems: CONSTITUTIONAL: No fevers, chills. PULMONARY: No sob CARDIOVASCULAR: No chest pain/palpitations GASTROINTESTINAL: No nausea/vomiting. GENITOURINARY: No hematuria/dysuria. MUSCULOSKELETAL: No myagias/arthalgias. PSYCHIATRIC: The patient denies depression. NEUROLOGIC: No weakness Constitutional: alert, oriented Psych: no complaints Head: normocephalic ENMT: mucosa pink and moist Neck: jvd (9 cm water), supple Respiratory: clear to auscultation Cardiovascular: regular rate and rhythm Gastrointestinal: non-tender, soft Musculoskeletal: muscle tone (normal) Extremities: edema (none) Neurological: other (No focal deficits) Results Result Diagram: 03/03/17 0722 03/06/17 1315 Results 24 hrs Laboratory Tests Test 03/06/17 06:53 03/06/17 13:15 Sodium Level 139 137 Potassium Level 5.9 H 4.5 Chloride Level 102 104 Carbon Dioxide Level 32 H 28 Anion Gap 11 10 Blood Urea Nitrogen 20 21 H Creatinine 1.04 0.87 Glucose Level 85 104 Calcium Level 9.4 9.0 Total Bilirubin 0.9 Direct Bilirubin 0.00 Indirect Bilirubin 0.9 Aspartate Amino Transf (AST/SGOT) 51 H Alanine Aminotransferase (ALT/SGPT) 78 H Alkaline Phosphatase 127 H Total Protein 6.3 Albumin 3.1 L Globulin 3.20 Albumin/Globulin Ratio 0.96 Medications Medications Current Medications Ondansetron HCl (Zofran Inj) 4 mg Q6H PRN IV NAUSEA AND/OR VOMITING; Start 03/01 at 22:00 Aspirin (Aspirin) 81 mg DAILY PO Last administered on 03/06/17 09:12; Admin Dose 81 MG; Start 03/02/17 at 09:00 Acetaminophen (Tylenol Tab) 650 mg Q6H PRN PO PAIN LEVEL 1-3 OR FEVER Last administered on 03/02/17 11:59; Admin Dose 650 MG; Start 03/01/17 at 22:00 Docusate Sodium (Colace) 100 mg Q12H PRN PO CONSTIPATION; Start 03/01/17 at 22: 00 Famotidine (Pepcid) 20 mg Q12 PO Last administered on 03/06/17 09:13; Admin Dose 20 MG; Start 03/02/17 at 09:00 Enoxaparin Sodium (Lovenox) 40 mg DAILY SC Last administered on 03/06/17 09:12 ; Admin Dose 40 MG; Start 03/02/17 at 15:00 Pantoprazole (Protonix Tab) 40 mg DAILY@06 PO Last administered on 03/06/17 05 :12; Admin Dose 40 MG; Start 03/03/17 at 06:00 Spironolactone (Aldactone) 25 mg DAILY PO Last administered on 03/06/17 09:13 ; Admin Dose 25 MG; Start 03/02/17 at 16:00 Carvedilol (Coreg) 3.125 mg BID PO Last administered on 03/06/17 14:26; Admin Dose 3.125 MG; Start 03/04/17 at 21:00 Losartan Potassium (Cozaar) 12.5 mg DAILY PO Last administered on 03/06/17 14: 21; Admin Dose 12.5 MG; Start 03/05/17 at 09:00 Furosemide (Lasix) 20 mg DAILY PO Last administered on 03/06/17t 14:24; Admin Dose 20 MG; Start 03/05/17 at 09:00 ANOOP RUIZ Mar 06, 2017 15:51
--- NOTE | 2017-03-06 18:01 | PDOCDIS ---
Discharge Instructions CONDITION Patient Condition: Stable HOME CARE INSTRUCTIONS: Special Diet: 2gNa ACTIVITY: Activity Restrictions: Slowly Increase Activity FOLLOW UP/APPOINTMENTS Follow-up Plan see own pcp [address] ruiz [address] lundy renal 2 wks ZOE LUNDY MD Mar 06, 2017 18:01
[2017-03-06] MEDS ORDERED: CARV3.1260 PO (18:03)
[2017-03-06] MEDS ORDERED: LOSA25TA2 PO (18:03)
[2017-03-06] MEDS ORDERED: LAS20 PO (18:03)
[2017-03-06] MEDS ORDERED: ASPI81TA3 PO (18:03)
[2017-03-06] MEDS ORDERED: DOCU-216 PO (18:03)
[2017-03-06] MEDS ORDERED: SPIR25TA PO (18:03)
[2017-03-06] MEDS ORDERED: FAMO20TA18 PO (18:03)
--- NOTE | 2017-03-07 12:53 | QN ---
Documentation Comment [id number] ZOE LUNDY MD Mar 07, 2017 12:53
--- NOTE | 2017-03-08 07:39 | DS ---
DATE OF ADMISSION: 03/01/2017 DATE OF DISCHARGE: 03/06/2017 ADMISSION DIAGNOSES: 1. Chest pain. 2. Hypertension. 3. Bradycardia. 4. Coronary artery disease. 5. Congestive heart failure. 6. Dyslipidemia. HOSPITAL COURSE: The patient was seen in cardiology consultation by Dr.lensky Dr. Alexandra. The patient had 2D echocardiogram, shows ejection fraction of 25 percent. The patient started on decongestive therapy. The patient also underwent Lexiscan, shows distribution of the scan are most consistent with moderate size predominantly low perfusion defect distal and total septal and distal anterior and inferior dyskinetic septal wall, likely due to prior CABG and moderate hypokinesis of the left ventricle. The patient had ultrasound of the abdomen due to congestive liver and abnormal LFT, showed right effusion otherwise normal right upper quadrant abdominal ultrasound. The patient was cleared by the senior [employer] consultant to be discharged home. FINAL DIAGNOSES: 1. Chest pain, myocardial infarction ruled out. 2. Hypertension. 3. Bradycardia. 4. History of coronary artery disease. 5. Status post Lexiscan. 6. hx cabg. 7. Ejection fraction 20-25 percent. 8. History of cardiac surgery with sternotomy. 9. The patient has abnormal liver function tests that are resolving, possibly the patient has congested liver. DISCHARGE MEDICATIONS: To continue: 1. Aspirin. 2. Coreg. 3. Docusate sodium. 4. Pepcid. 5. Lasix. 6. Losartan. 7. Aldactone. FOLLOWUP: The patient to follow with PCP and Dr. Scott for nephrology and Dr. Alexandra for cardiology as an outpatient. DISCHARGE INSTRUCTIONS: Diet is cardiac diet. DISCHARGE CONDITION: The patient is stable at the time of discharge. Dictated By: Reji Scott MD /jennifer/charla /Document#: [id number] CARLIN
== END 2017-03-06 18:59 | disposition home or self-care (01) | DRG 313 ==
LOC: MS4 20:40
PROVIDERS: ADMIT Internal Medicine Nephrology; ATTEND Internal Medicine Nephrology
PROC: C22G1ZZ Tomographic (Tomo) Nuclear Medicine Imaging of Myocardium using Technetium 99m (Tc-99m) (ICD-10-PCS; principal; 2017-03-05)
PROC: 4A02XM4 Measurement of Cardiac Total Activity, External Approach (ICD-10-PCS; 2017-03-05)
PROC: 3E033HZ Introduction of Radioactive Substance into Peripheral Vein, Percutaneous Approach (ICD-10-PCS; 2017-03-05)
DX: R07.9 Chest pain, unspecified (principal); I25.2 Old myocardial infarction; I11.0 Hypertensive heart disease with heart failure; I50.9 Heart failure, unspecified; E78.5 Hyperlipidemia, unspecified; I25.10 Atherosclerotic heart disease of native coronary artery without angina pectoris; E66.3 Overweight; Z68.28 Body mass index [BMI] 28.0-28.9, adult; Z95.5 Presence of coronary angioplasty implant and graft; I25.5 Ischemic cardiomyopathy; Z95.1 Presence of aortocoronary bypass graft; R00.1 Bradycardia, unspecified
CPT/HCPCS: 71020; 76705; 78452; 80048; 80053; 82550; 82553; 84484; 85025; 93017; 93306; A9500; A9505; J1650; J2785